=== PATIENT | male | born 1965 | race Caucasian/White ===

== ENCOUNTER 2019-09-22 09:28 | Outpatient (CLI) | payer BC ==
[2019-09-22 10:02] LABS: ALT (SGPT) 92 U/L (8-55); AST (SGOT) 81 U/L (5-34); Albumin 4.6 g/dL (3.5-5.0); Alkaline Phosphatase 66 U/L (40-110); Anion Gap 18 mmol/L (10-20); BUN (Urea Nitrogen) 7 mg/dL (8.4-25.7); Bilirubin, Total 0.5 mg/dL (0.2-1.2); Calc. Creatinine Clearance 0 mL/min (70-130); Calcium 9.1 mg/dL (7.8-10.44); Carbon Dioxide 26 mmol/L (22-29); Chloride 101 mmol/L (98-107); Estimated GFR-MDRD Greater than 90; Globulin 3.3 g/dL (2.4-3.5); Glucose 108 mg/dL (70-105); Lipase 39 U/L (8-78); Potassium 4.2 mmol/L (3.5-5.1); Protein, Total 7.9 g/dL (6.0-8.3); Sodium 141 mmol/L (136-145)
[2019-09-22] MEDS ORDERED: Iopamidol 370 76% 100 ML VIAL ONE (10:30)
[2019-09-22 10:32] LABS: Band 3 % (5-11); Eosinophils 5 % (0-10); Lymphocytes 20 % (21-51); MDiff Complete? YES; Mean Corpuscular HGB CONC 30.9 g/dL (32.0-36.0); Mean Corpuscular Hemoglobin 28.7 pg (27.0-31.0); Mean Corpuscular Volume 92.9 fL (78.0-98.0); Mean Platelet Volume 6.8 fL (7.4-10.4); Monocytes 14 % (0-10); Neutrophil 58 % (42-75); Platelet Count 230 thou/uL (130-400); Platelet Morphology Comment Appears Adequate; RBC Distribution Width 14.5 % (11.5-14.5); RBC Morphology Normal; Red Blood Cell (RBC) Count 4.87 mill/uL (4.70-6.10)
--- NOTE | 2019-09-22 12:17 | CT ---
CT ABDOMEN WITH CONTRAST CT PELVIS WITH CONTRAST: DATE: 09/22/2019 HISTORY: 53-year-old male with left upper quadrant abdominal pain. COMPARISON: None. TECHNIQUE: IV injection of iodinated contrast media: Administered. Oral contrast media: Administered. FINDINGS: Paraesophageal hiatal hernia with approximately 3/4 of the stomach herniated superior to the diaphrag m. Diffusely low hepatic attenuation represents fatty liver. No solid or cystic focal hepatic lesion. No portal vein thrombosis. Pancreas, adrenals, appendix, and spleen are normal. Fat-containing right inguinal hernia without bowel loop. No colonic diverticulitis, small bowel dilation, ascites, pneumoperitoneum, or pleural effusion. 1.7 cm soft tissue density nodule abutting the left side of diaphragmatic bria is probably a splenule . No hydronephrosis or pyelonephritis. Atherosclerotic calcification of abdominal aorta without aneurysm. Tiny linear calcification at right renal lower pole hilum is probably a vascular calcification rather than representing nephrolithiasis . Nonspecific mild mural thickening of urinary bladder. IMPRESSION: 1. Large paraesophageal hiatal hernia. 2. Hepatic steatosis. JNR POS: JIN
== END 2019-09-22 09:29 | disposition home or self-care (01) ==
LOC: MADLAB 09:28
PROVIDERS: ATTEND Physician Assistant Medical
DX: K44.9 Diaphragmatic hernia without obstruction or gangrene (principal); D12.6 Benign neoplasm of colon, unspecified; R10.9 Unspecified abdominal pain; R63.0 Anorexia; R19.4 Change in bowel habit; K76.0 Fatty (change of) liver, not elsewhere classified
CPT/HCPCS: 36415; 74177; 80053; 83690; 85025; Q9967